=== PATIENT | female | born 1970 | race Caucasian/White ===

== ENCOUNTER 2016-06-05 09:35 | Emergency (ER) | payer BC ==
[2016-06-05 10:19] VITALS: BP 135/91
--- NOTE | 2016-06-05 10:29 | UC ---
Back Pain HPI - HPI Summary HPI Summary: coomplaint of back pain in lumbar spine that started 2 months ago recently worsened over the last1.5 weeks aching pain starts in her lower back and radiates into her throacic spine and under ribcage sits a lot in office throughout the day her back gets more and motre painful lying down relieves the pain sitting makes the pain worsen hx of 2 bulging discs oin lumbar spine- she can't recall - seen by [facility] taking ibuprofen without relief lately denies fever or incontinence - History of Current Complaint Chief Complaint: UCBackPain Stated Complaint: MID BACK / RIB PAIN Time Seen by Provider: 06/05/16 10:20 Hx Obtained From: Patient Hx Last Menstrual Period: "I don't know. I have the Mirena." - Allergies/Home Medications Allergies/Adverse Reactions: Allergies Allergy/AdvReac Type Severity Reaction Status Date / Time No Known Allergies Allergy Verified 06/05/16 10:14 Home Medications: Home Medications Levonorgestrel (IUD) (NF) [Mirena (NF)] 20 mcg IU ONCE 06/05/16 [History Confirmed 06/05/16] PMH/Surg Hx/FS Hx/Imm Hx Previously Healthy: No - chronic lower back pain, osteoarthritis - Surgical History Surgical History: Yes Surgery Procedure, Year, and Place: Mirena, Left Breast Biopsy, Appendectomy - Family History Known Family History: Positive: Other - CANCER Negative: Cardiac Disease, Hypertension, Diabetes - Social History Occupation: Employed Full-time Lives: With Family Alcohol Use: Occasionally Substance Use Type: None Smoking Status (MU): Heavy Every Day Tobacco Smoker Amount Used/How Often: 1/2 PPD Cessation Counseling: Patient Advised to Stop - Immunization History Most Recent Influenza Vaccination: Not the Season Review of Systems Constitutional: Negative Skin: Negative Eyes: Negative ENT: Negative Respiratory: Negative Cardiovascular: Negative Gastrointestinal: Negative Genitourinary: Negative Motor: Negative Neurovascular: Negative Musculoskeletal: Other: - lower back pain Neurological: Negative Psychological: Negative All Other Systems Reviewed And Are Negative: Yes Physical Exam Triage Information Reviewed: Yes Appearance: No Pain Distress, Well-Nourished Vital Signs: Initial Vital Signs Temp 99.3 F 06/05/16 10:11 Pulse 80 06/05/16 10:11 Resp 16 06/05/16 10:11 BP 135/91 06/05/16 10:11 Pulse Ox 100 06/05/16 10:11 Vital Signs Reviewed: Yes Eyes: Positive: Conjunctiva Clear ENT: Positive: Pharynx normal, TMs normal Neck: Positive: Supple Respiratory: Positive: Lungs clear, Normal breath sounds, No respiratory distress Cardiovascular: Positive: RRR, No Murmur, Pulses Normal Abdomen Description: Positive: Nontender, Soft Bowel Sounds: Positive: Present Musculoskeletal: Positive: Other: - non tender throughout musculature of lower back musculature non tneder with percusion of spine no brusing or deformity Neurological: Positive: Alert, Other: - patellar reflexes intact negative SLR Psychological Exam: Normal Skin Exam: Normal Back Pain Course/Dx - Course Course Of Treatment: exam completed. no red flags to warrant imaging. will start muscle relaxer, NSAIDS and further evaluation and treament of lower back pain - Differential Dx/Diagnosis Differential Diagnosis/HQI/PQRI: Herniated Disc, Strain, Sprain Provider Diagnoses: lower back pain Discharge - Discharge Plan Condition: Stable Disposition: HOME Prescriptions: Metaxalone TAB* [Skelaxin TAB*] 800 mg PO TID #30 tab Patient Education Materials: Low Back Strain (ED) Referrals: Riana Baker MD [Primary Care Provider] - Additional Instructions: Take skelaxin 30 minutes before you go to sleep. Do not drink, drive or operate heavy machinery while on skelaxin, Take acetaminophen or ibuprofen for fever or pain. Please call physical therapist for further evaluation and treatment of your lower back pain. Increase fluids and rest. Please review your discharge instructions. If your symptoms do not improve please call your primary care provider or return to urgent care.
== END 2016-06-05 10:54 | disposition home or self-care (01) ==
LOC: UCCORT 09:35
DX: M54.5 Low back pain (principal); F17.210 Nicotine dependence, cigarettes, uncomplicated
CPT/HCPCS: 99212; G0463

== ENCOUNTER 2018-02-10 16:30 | Emergency (ER) | payer BC ==
[2018-02-10 18:05] VITALS: BP 136/91
--- NOTE | 2018-02-10 18:46 | UC ---
Knee Pain HPI - HPI Summary HPI Summary: 47-year-old woman comes to the clinic today with a complaint of left knee pain. This pain started last night it came on gradually. It hurts to bear weight. The pain is also worse with any kind of twisting of the knee. When she is at rest there is no pain. Denies any calf pain or thigh pain. No known injury. No fevers or chills. No prior problem with this knee. No hip or ankle pain. - History of Current Complaint Chief Complaint: UCLowerExtremity Stated Complaint: LEFT KNEE PAIN Time Seen by Provider: 02/10/18 17:50 Hx Last Menstrual Period: HAS AN IUD, DOES NOT HAVE REG PERIODS Pain Intensity: 8 - Allergies/Home Medications Allergies/Adverse Reactions: Allergies Allergy/AdvReac Type Severity Reaction Status Date / Time No Known Allergies Allergy Verified 02/10/18 17:56 PMH/Surg Hx/FS Hx/Imm Hx Other Endocrine History: NO DM - Surgical History Surgical History: Yes Surgery Procedure, Year, and Place: Mirena, Left Breast Biopsy, Appendectomy - Family History Known Family History: Positive: Other - CANCER Negative: Cardiac Disease, Hypertension, Diabetes - Social History Alcohol Use: Occasionally Substance Use Type: None Smoking Status (MU): Heavy Every Day Tobacco Smoker Amount Used/How Often: 1/2 PPD Household Exposure Type: Cigarettes - Immunization History Most Recent Influenza Vaccination: Not the 2015/2016 Season Review of Systems Constitutional: Negative Skin: Negative Eyes: Negative ENT: Negative Respiratory: Negative Cardiovascular: Negative Gastrointestinal: Negative Motor: Decreased ROM - LEFT KNEE SECONDARY TO PAIN Neurovascular: Negative Musculoskeletal: Other: - The left knee has an effusion. At rest, the knee is nontender to palpation. The knee is stable to examination there is no pain with movement of the patella . Positive Patrice's . The knee is not hot to palpation . The calf is also nontender and the upper inner leg is also nontender. No evidence of DVT on exam. Neurological: Negative Psychological: Negative Is Patient Immunocompromised?: No All Other Systems Reviewed And Are Negative: Yes Physical Exam Triage Information Reviewed: Yes Appearance: Well-Appearing, No Pain Distress, Well-Nourished Vital Signs: Initial Vital Signs Temp 98.9 F 02/10/18 17:58 Pulse 76 02/10/18 17:58 Resp 18 10/03/18 17:58 BP 136/91 02/10/18 17:58 Pulse Ox 100 02/10/18 17:58 Vital Signs Reviewed: Yes Eye Exam: Normal Eyes: Positive: Conjunctiva Clear Neck exam: Normal Neck: Positive: Supple Respiratory: Positive: No respiratory distress Musculoskeletal: Positive: Other: - The left knee has an effusion. At rest, the knee is nontender to palpation. The knee is stable to examination there is no pain with movement of the patella . Positive Patrice's . The knee is not hot to palpation . The calf is also nontender and the upper inner leg is also nontender. No evidence of DVT on exam. Neurological Exam: Normal Neurological: Positive: Alert Psychological Exam: Normal Psychological: Positive: Age Appropriate Behavior Skin Exam: Normal Knee Pain Course/Dx - Course Course Of Treatment: I reviewed the x-ray with the patient. I see an effusion on x-ray do not see any fracture. Radiologist is reading pending. The pain was worse with but Brazonate had twisting of the knee and there is an effusion makes me suspicious for a meniscal injury. No evidence of infection or DVT at this time. The plan is Ash wrap and crutches ice elevation and rest and anti- inflammatories. And follow-up with orthopedics. We discussed getting seen again sooner if anything worsens or is questions or concerns. - Differential Dx/Diagnosis Provider Diagnoses: LEFT KNEE PAIN Discharge - Sign-Out/Discharge Documenting (check all that apply): Patient Departure All imaging exams completed and their final reports reviewed: No - Discharge Plan Condition: Stable Disposition: HOME Patient Education Materials: Knee Pain (ED), Swollen Knee Joint (ED) Referrals: [facility] [place] PHYSICIAN REFERRAL [Outside] Robert Null MD [Medical Doctor] - Zen Deras MD [Medical Doctor] - Additional Instructions: FOLLOW UP WITH ORTHOPEDICS. GET RECHECKED FOR ANY WORSENING OF YOUR CONDITION; FEVER, YOU FEEL ILL, THE KNEE IS HOT OR RED, CALF PAIN OR QUESTIONS OR CONCERNS. - Billing Disposition and Condition Condition: STABLE Disposition: Home
--- NOTE | 2018-02-11 05:23 | RAD ---
Indication: 1 day LEFT knee pain. Comparison: No relevant prior exams available on the [facility] for comparison. Technique: LEFT knee: AP, tunnel, lateral, sunrise views. Report: Probable very small joint effusion. No cortical disruption or suspicious trabecular irregularity to suggest fracture. Normal articular alignment and preserved joint spaces. Unremarkable soft tissue contours. IMPRESSION: #. Very small joint effusion without additional radiographic abnormality. R0
--- NOTE | 2018-02-11 08:07 | UC ---
- EKG/XRAY/CT Xray Comments: wet read correct Discharge - Sign-Out/Discharge Documenting (check all that apply): Patient Departure All imaging exams completed and their final reports reviewed: Yes - Discharge Plan Condition: Stable Disposition: HOME Patient Education Materials: Swollen Knee Joint (ED), Knee Pain (ED) Referrals: [facility] [place] [facility] [Outside] Zen Deras MD [Medical Doctor] - Robert Null MD [Medical Doctor] - Additional Instructions: FOLLOW UP WITH ORTHOPEDICS. GET RECHECKED FOR ANY WORSENING OF YOUR CONDITION; FEVER, YOU FEEL ILL, THE KNEE IS HOT OR RED, CALF PAIN OR QUESTIONS OR CONCERNS. - Billing Disposition and Condition Condition: STABLE Disposition: Home
== END 2018-02-10 19:04 | disposition home or self-care (01) ==
LOC: UCCORT 16:30
DX: M25.562 Pain in left knee (principal)
CPT/HCPCS: 99212; G0463